=== PATIENT | male | born 1980 | race Caucasian/White ===

== ENCOUNTER 2017-02-25 18:07 | Emergency (ER) | payer MEDICAID ==
[~2017-02-25 18:07] MED LIST: AUGMENTIN 875-1 EAC2 PO; DELTASONE20 MG PO; KEFLEX500 MG PO; MONISTAT-DERM15 GM TP
== END 2017-02-25 18:47 | disposition left against medical advice (07) ==
LOC: EDMED 18:07
DX: Z53.21 Procedure and treatment not carried out due to patient leaving prior to being seen by health care provider (principal)